=== PATIENT | male | born 1985 | race Caucasian/White ===

== ENCOUNTER 2017-04-10 11:10 | Day surgery (SDC) | payer OTHER, BC ==
[2017-04-10] MEDS ORDERED: D5 LR 1000 ML 1,000 ML IV ONE (11:20)
[2017-04-10 12:54] VITALS: BP 118/68
[2017-04-10] MEDS ORDERED: DIPRIVAN VIAL ONE (13:35)
== END 2017-04-10 12:55 | disposition home or self-care (01) ==
LOC: SURG1 11:10
PROVIDERS: ATTEND Internal Medicine Gastroenterology
PROC: 0DBH8ZX Excision of Cecum, Via Natural or Artificial Opening Endoscopic, Diagnostic (ICD-10-PCS; principal; 2017-04-10 17:00)
PROC: 0DJD8ZZ Inspection of Lower Intestinal Tract, Via Natural or Artificial Opening Endoscopic (ICD-10-PCS; principal; 2017-04-10 17:00)
DX: R19.4 Change in bowel habit (principal); K92.1 Melena; R10.32 Left lower quadrant pain; K64.0 First degree hemorrhoids
CPT/HCPCS: A4217; J3490; J7120

== ENCOUNTER 2017-04-17 11:58 | Day surgery (SDC) | payer OTHER, BC ==
[2017-04-17] MEDS ORDERED: D5 LR 1000 ML 1,000 ML IV ONE (12:06)
[2017-04-17] MEDS ORDERED: DIPRIVAN VIAL 20 ML ONE ×2 (12:32→13:24)
[2017-04-17 13:50] VITALS: BP 126/73
== END 2017-04-17 13:52 | disposition home or self-care (01) ==
LOC: SURG1 11:58
PROVIDERS: ATTEND Internal Medicine Gastroenterology
PROC: 0DB68ZX Excision of Stomach, Via Natural or Artificial Opening Endoscopic, Diagnostic (ICD-10-PCS; principal; 2017-04-17 15:45)
PROC: 0DJ08ZZ Inspection of Upper Intestinal Tract, Via Natural or Artificial Opening Endoscopic (ICD-10-PCS; principal; 2017-04-17 15:45)
PROC: 0DB88ZX Excision of Small Intestine, Via Natural or Artificial Opening Endoscopic, Diagnostic (ICD-10-PCS; principal; 2017-04-17 15:45)
DX: R10.12 Left upper quadrant pain (principal); R10.13 Epigastric pain; K21.9 Gastro-esophageal reflux disease without esophagitis; K20.8 Other esophagitis; K29.60 Other gastritis without bleeding
CPT/HCPCS: A4217; J3490; J7120